=== PATIENT | male | born 1965 | race Asian ===

== ENCOUNTER 2023-03-28 13:47 | Emergency (ER) | payer OTHER ==
[~2023-03-28] VITALS: Ht 162.6 cm; Wt 79.5 kg
[~2023-03-28 13:47] MED LIST: VICOT PO
[2023-03-28] MEDS ORDERED: NAPR-1025 PO (13:59)
[2023-03-28] MEDS ORDERED: LISI-894 PO (13:59)
[2023-03-28] MEDS ORDERED: HYDR10SY9 PO (13:59)
[2023-03-28] MEDS ORDERED: ALLO100T50 PO (13:59)
[2023-03-28] MEDS ORDERED: LEVO2.5S4 PO (13:59)
[2023-03-28] MEDS ORDERED: PRED-554 PO ×2 (13:59→16:15)
[2023-03-28 14:01] VITALS: TEMP 98.3
[2023-03-28] MEDS ORDERED: LEVO5TAB13 PO (14:02)
[2023-03-28] MEDS ORDERED: HYDR-3831 PO (14:02)
[2023-03-28 15:29] LABS: BASOPHILS % (AUTO) 0.1 % (0.0-2.0); EOSINOPHILS % (AUTO) 0.4 % (1.0-6.0); LYMPHOCYTES # (AUTO) 1.4 K/uL (1.0-4.8); LYMPHOCYTES % (AUTO) 9.9 % (22.0-44.0); MEAN CORPUSCULAR HEMOGLOBIN 29.3 pg (26.0-34.0); MEAN CORPUSCULAR HGB CONC 33.4 G/dL (31.0-37.0); MEAN CORPUSCULAR VOLUME 88 fL (80-100); MONOCYTES # (AUTO) 0.9 K/uL (0.1-1.0); MONOCYTES % (AUTO) 6.7 % (2.0-9.0); NEUTROPHILS # (AUTO) 11.4 K/uL (1.8-7.7); NEUTROPHILS % (AUTO) 82.9 % (40.0-70.0); PLATELET COUNT (AUTO) 334 K/uL (150-450); RED BLOOD CELL COUNT(AUTO) 5.12 MIL/uL (4.50-5.90); RED CELL DISTRIBUTION WIDTH 12.5 % (11.5-14.5)
[2023-03-28] MEDS ORDERED: PredniSONE 20 MG TABLET PO ONE (15:30)
[2023-03-28 15:38] LABS: ANION GAP 8 mmol/L (8-16); CALCIUM, TOTAL 9.1 mg/dL (8.8-10.5); CARBON DIOXIDE 25 mmol/L (22-29); CHLORIDE 105 mmol/L (98-107); CREATININE 1.16 mg/dL (0.60-1.30); GLOMERULAR FILTR. RATE CALC > 60 mL/min (>60); GLUCOSE,RANDOM 146 mg/dL (70-110); POTASSIUM 3.4 mmol/L (3.5-5.1); SODIUM SERUM 138 mmol/L (136-145)
[2023-03-28 15:41] LABS: PROTHROMBIN TIME 10.4 SEC (9.4-11.6)
[2023-03-28 15:43] LABS: ALBUMIN 3.6 g/dL (3.4-5.0); ALKALINE PHOSPHATASE 45 U/L (46-116); ASPARTATE AMINOTRANSFERASE 15 U/L (15-37); BILIRUBIN,TOTAL 0.4 mg/dL (0.1-1.0)
[2023-03-28 15:53] LABS: ALANINE AMINOTRANSFERASE 20 U/L (12-78)
[2023-03-28 17:15] VITALS: BP 134/81; PULSE 81; RESP 17
== END 2023-03-28 17:33 | disposition home or self-care (01) ==
LOC: EMS 13:49
DX: L51.1 Stevens-Johnson syndrome (principal); Z88.6 Allergy status to analgesic agent
CPT/HCPCS: 99283; 80053; 85025; 85610; 85730; 36415; J7512

== ENCOUNTER 2023-09-04 19:36 | Emergency (ER) | payer OTHER ==
[~2023-09-04] VITALS: Ht 162.6 cm; Wt 79.5 kg
[~2023-09-04 19:36] MED LIST changes: +ALLO100T50 PO; +HYDR-3831 PO; +LEVO5TAB13 PO; +LISI-894 PO; +NAPR-1025 PO; +PRED-554 PO; -VICOT PO
[2023-09-04 19:44] VITALS: TEMP 97.9
[2023-09-04 22:00] VITALS: BP 147/98; PULSE 69; RESP 18
[2023-09-04] MEDS ORDERED: MORPHINE SULFATE 4 MG/ML SYRINGE IVP ONE (22:30)
[2023-09-04] MEDS ORDERED: ONDANSETRON HCL 4 MG/2 ML VIAL IVP ONE (22:30)
[2023-09-04] MEDS ORDERED: SODIUM CHLORIDE 0.9% 1,000 ML IV ONE (22:30)
[2023-09-04] MEDS ORDERED: SODIUM PHOSPHATE,MONO-DIBASIC 133 ML ENEMA PR ONE (22:45)
[2023-09-04 23:34] LABS: BASOPHILS % (AUTO) 0.3 % (0.0-2.0); EOSINOPHILS % (AUTO) 0.7 % (1.0-6.0); HEMATOCRIT 39.4 % (41-53); HEMOGLOBIN 13.2 g/dL (13.5-17.5); LYMPHOCYTES # (AUTO) 1.1 K/uL (1.0-4.8); MEAN CORPUSCULAR HGB CONC 33.4 G/dL (31.0-37.0); MEAN CORPUSCULAR VOLUME 87 fL (80-100); MONOCYTES # (AUTO) 0.5 K/uL (0.1-1.0); MONOCYTES % (AUTO) 4.8 % (2.0-9.0); NEUTROPHILS # (AUTO) 8.3 K/uL (1.8-7.7); NEUTROPHILS % (AUTO) 83.2 % (40.0-70.0); PLATELET COUNT (AUTO) 334 K/uL (150-450); RED BLOOD CELL COUNT(AUTO) 4.54 MIL/uL (4.50-5.90); RED CELL DISTRIBUTION WIDTH 12.8 % (11.5-14.5); WHITE BLOOD COUNT (AUTO) 9.9 K/uL (4.5-11.0)
[2023-09-04 23:46] LABS: PROTHROMBIN TIME 10.2 SEC (9.4-11.6)
[2023-09-04 23:51] LABS: TROPONIN I-HIGH SENSITIVITY 5 ng/L (<76)
[2023-09-04 23:52] LABS: LACTIC ACID 1.4 mmol/L (0.4-2.0)
[2023-09-04 23:57] LABS: ANION GAP 11 mmol/L (8-16); CALCIUM, TOTAL 8.7 mg/dL (8.8-10.5); CARBON DIOXIDE 25 mmol/L (22-29); CHLORIDE 96 mmol/L (98-107); CREATININE 0.82 mg/dL (0.60-1.30); GLOMERULAR FILTR. RATE CALC > 60 mL/min (>60); GLUCOSE,RANDOM 123 mg/dL (70-110); POTASSIUM 3.7 mmol/L (3.5-5.1); SODIUM SERUM 132 mmol/L (136-145); UREA NITROGEN, BLOOD 7 mg/dL (7-18)
[2023-09-05 00:01] LABS: ALANINE AMINOTRANSFERASE 24 U/L (12-78); ALBUMIN 3.9 g/dL (3.4-5.0); ALKALINE PHOSPHATASE 45 U/L (46-116); ASPARTATE AMINOTRANSFERASE 20 U/L (15-37); BILIRUBIN,TOTAL 0.8 mg/dL (0.1-1.0); LIPASE 36 U/L (16-77); TOTAL PROTEIN, SERUM 7.3 g/dL (6.4-8.2)
[2023-09-05] MEDS ORDERED: MAGNESIUM CITRATE [LEMON] 300 ML ORAL SOLUTION PO ONE (01:15)
[2023-09-05] MEDS ORDERED: POLY119P3 PO (01:16)
== END 2023-09-05 01:28 | disposition home or self-care (01) ==
LOC: EMS 19:41
DX: K91.871 Postprocedural hematoma of a digestive system organ or structure following other procedure (principal); K59.00 Constipation, unspecified; R10.84 Generalized abdominal pain; Z98.890 Other specified postprocedural states; Z88.6 Allergy status to analgesic agent
CPT/HCPCS: 99285; 74176; 96374; 96361; 96375; 80053; 83605; 83690; 84484; 85025; 85610; 85730; 87040; 36415; 74018; 93005; J2270; J2405; J7030